=== PATIENT | female | born 1970 | race Caucasian/White ===

== ENCOUNTER → 2020-06-17 14:15 | Outpatient (CLI) | payer OTHER, SELFPAY ==
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
== END ==
PROVIDERS: PCP Nurse Practitioner Primary Care; Referring Provider Specialist; Visit Provider Specialist
DX: S50.352A Superficial foreign body of left elbow, initial encounter (principal)
CPT/HCPCS: 73200

== ENCOUNTER → 2021-02-14 15:26 | Outpatient (CLI) | payer OTHER, SELFPAY ==
--- NOTE | 2021-02-14 15:31 | RAD_ITS ---
STUDY: X-RAY - LEFT FOOT CLINICAL: Left foot pain for 2 months, plantar fasciitis. TECHNIQUE: 3 view(s) of the foot. COMPARISON: None. FINDINGS: There is a small plantar calcaneal enthesophyte. Otherwise, unremarkable talus, calcaneus, and tarsal bones. Normal visualized subtalar, talonavicular, calcaneocuboid, tarsal and tarsometatarsal articulations. Normal metatarsi. There is mild joint space narrowing of the metatarsophalangeal joint of the great toe. Normal tibial and fibular sesamoid bones. Normal interphalangeal joint of the great toe. Normal phalanges of the great toe. Normal second through fifth metatarsophalangeal joints. Normal interphalangeal joints and phalanges of the lesser toes. The soft tissue structures are unremarkable. RAD/Foot min 3 Views IMPRESSION: Small plantar calcaneal enthesophyte. Mild arthrosis of the first metatarsophalangeal joint. Electronically Signed: Eliecer Allen MD at 14:30 EST Tel , Service support ,
== END ==
PROVIDERS: PCP Nurse Practitioner Primary Care; Referring Provider Podiatrist; Visit Provider Podiatrist
DX: M72.2 Plantar fascial fibromatosis (principal)
CPT/HCPCS: 73630

== ENCOUNTER → 2022-08-03 | Outpatient (CLI) | payer OTHER, SELFPAY ==
[2022-08-03 16:55] LABS: Absolute Lymphocyte Count 2.67 X10^3/uL (0.83-4.51); Absolute Neutrophil Count 2.6 X10^3/uL (2.0-7.7); Basophil# 0.04 X10^3/uL; Basophil% 0.7 % (0-1); Eosinophil# 0.12 X10^3/uL; Eosinophils% 2.1 % (0-5); Hematocrit 37.5 % (37-47); Hemoglobin 12.8 g/dL (12.0-15.0); Lymphocyte # 2.67 X10^3/ul (0.83-4.51); Lymphocyte % 45.7 % (19-41); Mean Corp Hgb Conc 34.1 g/dL (32-36); Mean Corpuscular Hgb 30.6 pg (27.0-32.0); Mean Corpuscular Volume 89.7 fL (81-99); Mean Platelet Vol. 10.1 fl (6.2-12.0); Monocyte% 6.8 % (0-10); NRBC Flagged by Analyzer 0 % (0-5); Neutrophil % 44.5 % (47-70); Platelet Count 291 K/mm3 (150-450); RBC Distribution Width CV 13.1 % (11.6-14.6); RBC Distribution Width SD 42.9 fl (35.1-43.9); Red Blood Count 4.18 M/mm3 (4.2-5.4); White Blood Count 5.8 K/mm3 (4.4-11.0)
[2022-08-03 18:01] LABS: Estradiol 32.9 pg/mL; Follicle Stimulating Hormone 28.8 mIU/mL; Luteinizing Hormone 16.7 mIU/mL; Prolactin 11.2 ng/mL; T4 Free Direct 0.78 ng/dL (0.76-1.46); Thyroid Stim Hormone (TSH) 2.69 uIU/mL (0.358-3.74)
[2022-08-08 09:09] LABS: Testosterone, % Free 0.91 % (0.50-2.80); Testosterone, Free 0.05 ng/dL (0.10-0.85); Testosterone, Total 6 ng/dL (4-50)
== END | disposition home or self-care (01) ==
LOC: WOBLAB 16:27
PROVIDERS: PCP Nurse Practitioner Primary Care; Visit Provider Nurse Practitioner Women's Health
DX: N93.9 Abnormal uterine and vaginal bleeding, unspecified (principal)
CPT/HCPCS: 36415; 82670; 83001; 83002; 84146; 84402; 84403; 84439; 84443; 85025

== ENCOUNTER → 2022-08-09 | Outpatient (CLI) | payer OTHER, SELFPAY ==
--- NOTE | 2022-08-09 | EMB_PTH ---
PATIENT: ELIZABETH SHETH [facility] U#:[id number] AGE/SX: 52/F ROOM: RE08/09/[address]: Dr. Haylee Andres DO : 1970 BED: DIS: 08/09/2022 SPEC #: [id number] RECD: 08/09/22 15:58 STATUS: CHE RELatrell #: [id number] CODY: 08/09/22 00:[address]: Haylee Andres DEPT: SURGICAL PATHOLOGY RECD BY: Aubrey Carson ENTERED: 08/10/22 11:54 SP TYPE: ENDOSammy BX/C GEOVANNA DR: Joan Woodruff, SALES EXEC-C Tissues: Endometrium, NOS Procedures: Surgery Specimen Level IV HEADER OPERATION: Endometrial biopsy PRE-OP DIAGNOSIS: Abnormal uterine bleeding TISSUE SUBMITTED: Endometrial biopsy MICROSCOPIC DIAGNOSIS Endometrial biopsy: Predominantly proliferative endometrium with focal area of disordered proliferative endometrium. COLLINS:silvia 08/11/2022 COMMENT Mild chronic endometritis is also noted. Case has been reviewed in consultation with Dr. Larios who concurs with the above diagnosis. IDC:AM MICROSCOPIC DESCRIPTION Slides are reviewed. GROSS DESCRIPTION Received in fixative is one container labeled with the patient's name and designated endometrial biopsy. The specimen consists of multiple fragments of hemorrhagic soft tissue that in aggregate measure 2.5 x 1.5 x 0.2 cm. The specimen is totally submitted in one cassette. / SJ:silvia 08/10/2022 TC:5 CPT: 92710
== END | disposition home or self-care (01) ==
LOC: LABSPEC 15:51
PROVIDERS: PCP Nurse Practitioner Primary Care; Visit Provider Student in an Organized Health Care Education/Training Program
DX: N93.9 Abnormal uterine and vaginal bleeding, unspecified (principal)
CPT/HCPCS: 88305